=== PATIENT | male | born 1980 | race Caucasian/White ===

== ENCOUNTER 2018-04-19 02:12 | Emergency (ER) | payer OTHER ==
[~2018-04-19] VITALS: Ht 193 cm; Wt 102.1 kg
[2018-04-19 02:32] VITALS: BP 137/76
[2018-04-19] MEDS ORDERED: TDAP [DIPH/PERTUSSIS/TET] 0.5 ML VIAL IM ONE ×2 (03:06→03:30)
== END 2018-04-19 03:21 | disposition home or self-care (01) ==
LOC: ER 02:15
DX: S61.211A Laceration without foreign body of left index finger without damage to nail, initial encounter (principal); Z98.890 Other specified postprocedural states; W26.0XXA Contact with knife, initial encounter; Y93.89 Activity, other specified; Y92.89 Other specified places as the place of occurrence of the external cause; Y99.8 Other external cause status
CPT/HCPCS: 90471; 90715; 99283; A4606; Z7610